=== PATIENT | female | born 1985 | race Caucasian/White ===

== ENCOUNTER → 2017-10-11 | Outpatient (CLI) | payer OTHER | LOC: FIMAGING 14:16 | PROVIDERS: ATTEND Surgery | DX: I72.3 Aneurysm of iliac artery (principal); K40.90 Unilateral inguinal hernia, without obstruction or gangrene, not specified as recurrent ==

== ENCOUNTER → 2019-03-17 | Outpatient (CLI) | payer OTHER | LOC: GIMAGING 08:59 → EDSTATUS 20:34 | PROVIDERS: ATTEND Internal Medicine Geriatric Medicine | DX: R05 Cough (principal) | CPT/HCPCS: 71046-PO ==

== ENCOUNTER 2019-05-01 05:51 | Day surgery (SDC) | payer OTHER | END 2019-05-01 09:54 | disposition home or self-care (01) | LOC: FSGY 05:51 ==